=== PATIENT | male | born 1975 | race Caucasian/White ===

== ENCOUNTER 2018-08-22 18:16 | Emergency (ER) | payer OTHER ==
--- NOTE | 2018-08-22 18:47 | ED ---
General Adult HPI <Chace Rangel - Last Filed: 08/22/18 20:33> - General Source: patient, RN notes reviewed Mode of arrival: ambulatory Limitations: no limitations <Jaimee Nunez - Last Filed: 08/22/18 21:22> - General Chief complaint: Abdominal Pain Stated complaint: lt sided abd pain Time Seen by Provider: 08/22/18 18:31 - History of Present Illness Initial comments: Patient is a 43-year-old male with history of anal fissures who presents to the emergency department with complaints of left lower quadrant pain that radiates to his testicles that started today around 4:30 PM. He states he was drinking some apple juice and then the pain started. He also had nausea and vomiting ( nonbloody nonbilious). He reports having chills today and his thought he felt warm but did not take his temperature. He had this pain once earlier this week also. His father had colorectal cancer. Patient denies ever having a colonoscopy. Patient denies any medical conditions other than anal fissures, which he reports has caused him to have blood in his stool in the past. Patient denies any recent shortness of breath, chest pain, back pain, dizziness, numbness or tingling, dysuria or hematuria, constipation or diarrhea, black stools, headaches or visual changes, or any other complaints. (Jaimee Nunez) - Related Data Previous Rx's Medication Instructions Recorded Ketorolac [Toradol] 10 mg PO Q6HR PRN #12 tab 08/22/18 Tamsulosin [Flomax] 0.4 mg PO DAILY #10 cap 08/22/18 Allergies Allergy/AdvReac Type Severity Reaction Status Date / Time No Known Allergies Allergy Verified 08/22/18 19:05 Review of Systems ROS Other: All systems not noted in ROS Statement are negative. <Chace Rangel - Last Filed: 08/22/18 20:33> ROS Other: All systems not noted in ROS Statement are negative. <Jaimee Nunez - Last Filed: 08/22/18 21:22> ROS Statement: Those systems with pertinent positive or pertinent negative responses have been documented in the HPI. Past Medical History Past Medical History: No Reported History History of Any Multi-Drug Resistant Organisms: None Reported Past Surgical History: Orthopedic Surgery Additional Past Surgical History / Comment(s): R hand, cysts removed off of scalp Past Psychological History: No Psychological Hx Reported Smoking Status: Never smoker Past Alcohol Use History: None Reported Past Drug Use History: None Reported <Jaimee Nunez - Last Filed: 08/22/18 21:22> General Exam Limitations: no limitations General appearance: alert, in no apparent distress Head exam: Present: atraumatic, normocephalic Eye exam: Present: normal appearance Respiratory exam: Present: normal lung sounds bilaterally Cardiovascular Exam: Present: regular rate, normal rhythm GI/Abdominal exam: Present: soft, normal bowel sounds, other (Slight LLQ tenderness to palpation.) exam: Present: normal inspection ( exam done with Dr. Rangel.) Extremities exam: Present: normal inspection Neurological exam: Present: alert, oriented X3 Psychiatric exam: Present: normal affect, normal mood Skin exam: Present: warm, dry <Jaimee Nunez - Last Filed: 08/22/18 21:22> Vital Signs 08/22/18 08/22/18 18:26 20:12 Temperature 97.8 F Pulse Rate 71 72 Respiratory 18 16 Rate Blood Pressure 149/96 135/86 O2 Sat by Pulse 98 99 Oximetry Medical Decision Making - Lab Data Result diagrams: 08/22/18 19:50 08/22/18 19:50 <Chcae Rangel - Last Filed: 08/22/18 20:33> - Lab Data Result diagrams: 08/22/18 19:50 08/22/18 19:50 <Jaimee Nunez - Last Filed: 08/22/18 21:22> - Medical Decision Making I, Iraj Rangel, personally saw and examined the patient. I have reviewed and agree with the PA findings, including all diagnostic interpretations and treatment plans as written unless otherwise stated. I was present for the gómez portions of any procedures performed and the inclusive time noted for any critical care statement. (Chace Rangel) CT revealed a 5 mm calculus at the left ureteral pelvic junction. WBC 12.4. UA postive for blood. Will prescribe Flomax and Toradol. Patient does not want a opioid. Patient will be discharged with follow up to his PCP and urology. Case discussed in detail with attending physician Dr. Rangel. (Jaimee Nunez) - Lab Data Lab Results 08/22/18 08/22/18 08/22/18 Range/Units 19:50 19:50 19:57 WBC 12.4 H (3.8-10.6) k/uL RBC 5.27 (4.30-5.90) m/uL Hgb 15.1 (13.0-17.5) gm/dL Hct 46.1 (39.0-53.0) % MCV 87.5 (80.0-100.0) fL MCH 28.6 (25.0-35.0) pg MCHC 32.7 (31.0-37.0) g/dL RDW 13.1 (11.5-15.5) % Plt Count 267 (150-450) k/uL Neutrophils % 84 % Lymphocytes % 10 % Monocytes % 5 % Eosinophils % 1 % Basophils % 0 % Neutrophils # 10.4 H (1.3-7.7) k/uL Lymphocytes # 1.3 (1.0-4.8) k/uL Monocytes # 0.6 (0-1.0) k/uL Eosinophils # 0.1 (0-0.7) k/uL Basophils # 0.0 (0-0.2) k/uL Sodium 140 (137-145) mmol/L Potassium 4.3 (3.5-5.1) mmol/L Chloride 106 (98-107) mmol/L Carbon Dioxide 27 (22-30) mmol/L Anion Gap 7 mmol/L BUN 14 (9-20) mg/dL Creatinine 1.04 (0.66-1.25) mg/dL Est GFR (CKD-EPI)AfAm >90 (>60 ml/min/1.73 sqM) Est GFR (CKD-EPI)NonAf 88 (>60 ml/min/1.73 sqM) Glucose 97 (74-99) mg/dL Calcium 9.9 (8.4-10.2) mg/dL Total Bilirubin 1.9 H (0.2-1.3) mg/dL AST 34 (17-59) U/L ALT 45 (21-72) U/L Alkaline Phosphatase 66 (38-126) U/L Total Protein 7.8 (6.3-8.2) g/dL Albumin 4.2 (3.5-5.0) g/dL Amylase 68 (30-110) U/L Lipase 48 (23-300) U/L Urine Color Yellow Urine Appearance Clear (Clear) Urine pH 7.5 (5.0-8.0) Ur Specific [place] 1.015 (1.001-1.035) Urine Protein Trace H (Negative) Urine Glucose (UA) Negative (Negative) Urine Ketones Negative (Negative) Urine Blood Small H (Negative) Urine Nitrite Negative (Negative) Urine Bilirubin Negative (Negative) Urine Urobilinogen <2.0 (<2.0) mg/dL Ur Leukocyte Esterase Negative (Negative) Urine RBC 30 H (0-5) /hpf Urine WBC 2 (0-5) /hpf Urine Mucus Few H (None) /hpf Disposition <Chace Rangel - Last Filed: 08/22/18 20:33> Is patient prescribed a controlled substance at d/c from ED?: No Time of Disposition: 21:21 <Jaimee Nunez - Last Filed: 08/22/18 21:22> Clinical Impression: Calculus of kidney Disposition: HOME SELF-CARE Condition: Good Instructions: Kidney Stones (ED) Additional Instructions: Follow-up with PCP in 2-3 days. Follow up with urology in 2-3 days. Return to emergency department if symptoms worsen or any other concerns. Prescriptions: Ketorolac [Toradol] 10 mg PO Q6HR PRN #12 tab PRN Reason: Pain Tamsulosin [Flomax] 0.4 mg PO DAILY #10 cap Referrals: Flor Smith III, MD [Primary Care Provider] - 1-2 days Fredi Lundberg MD [STAFF PHYSICIAN] - 1-2 days
[2018-08-22] MEDS ORDERED: SODIUM CHLORIDE 0.9% 1,000 ML IV STA (19:01)
[2018-08-22] MEDS ORDERED: KETOROLAC 30 MG/ML 1 ML VIAL IVP STA (19:01)
--- NOTE | 2018-08-22 19:37 | CT ---
EXAMINATION TYPE: CT abdomen pelvis wo con DATE OF EXAM: 08/22/2018 COMPARISON: None HISTORY: Left side abdominal pain CT DLP: 572.7 mGycm Automated exposure control for dose reduction was used. TECHNIQUE: Helical acquisition of images was performed from the lung bases through the pelvis. FINDINGS: There is minimal subsegmental atelectasis at the lung bases. Heart size is normal. There is no pleura l effusion. There is no pericardial effusion. There are small hiatal hernia. The remainder of the sto mach is normal. Gallbladder appears normal. Liver shows no focal defect. Spleen appears normal. There is no pancreatic mass. There is no adrenal mass. The kidneys have normal size. There is mild left-sided hydronephrosis. Ther e is 5 mm calculus at the left ureteral pelvic junction. The right kidney has normal size and contour without evidence of hydronephrosis. Ureters are not dila eric. There is no retroperitoneal adenopathy. There is no mesenteric adenopathy or edema. Appendix hussain ears normal. Urinary bladder appears normal. There is prostatic calcification. There is no inguinal hernia. There is no free fluid in the pelvis. I see no intestinal wall thickening. There are no dilated loops. The lumbar spine is intact. The bony pelvis appears intact. IMPRESSION: THERE IS OBSTRUCTING CALCULUS AT THE LEFT URETEROPELVIC JUNCTION. MILD LEFT-SIDED HYDRONEPHROSIS.
[2018-08-22 20:13] VITALS: RESP 16
[2018-08-22 20:22] LABS: ALT 45 U/L (21-72); AST 34 U/L (17-59); Albumin 4.2 g/dL (3.5-5.0); Alkaline Phosphatase 66 U/L (38-126); Amylase 68 U/L (30-110); Anion Gap 7 mmol/L; Blood Urea Nitrogen 14 mg/dL (9-20); Calcium 9.9 mg/dL (8.4-10.2); Carbon Dioxide 27 mmol/L (22-30); Chloride 106 mmol/L (98-107); Glucose 97 mg/dL (74-99); Lipase 48 U/L (23-300); Potassium 4.3 mmol/L (3.5-5.1); Sodium 140 mmol/L (137-145); Total Bilirubin 1.9 mg/dL (0.2-1.3); Total Protein 7.8 g/dL (6.3-8.2)
[2018-08-22 20:28] LABS: Basophils % (A) 0 %; Eosinophils # (A) 0.1 k/uL (0-0.7); Eosinophils % (A) 1 %; HCT 46.1 % (39.0-53.0); HGB 15.1 gm/dL (13.0-17.5); Lymphocytes # (A) 1.3 k/uL (1.0-4.8); Lymphocytes % (A) 10 %; MCH 28.6 pg (25.0-35.0); MCHC 32.7 g/dL (31.0-37.0); MCV 87.5 fL (80.0-100.0); Mean Platelet Volume 6.8; Monocytes # (A) 0.6 k/uL (0-1.0); Monocytes % (A) 5 %; Neutrophils # (A) 10.4 k/uL (1.3-7.7); Neutrophils % (A) 84 %; Platelet Count 267 k/uL (150-450); RBC 5.27 m/uL (4.30-5.90); RDW 13.1 % (11.5-15.5); WBC 12.4 k/uL (3.8-10.6)
[2018-08-22 20:28] LABS: Appearance,Urine Clear (Clear); Bilirubin,Urine Negative (Negative); Blood,Urine Small (Negative); Color,Urine Yellow; Glucose,Urine (UA) Negative (Negative); Ketones,Urine Negative (Negative); Leukocyte Esterase,Urine Negative (Negative); Mucus,Urine Few /hpf; Nitrite,Urine Negative (Negative); PH, Urine 7.5 (5.0-8.0); Protein,Urine Trace (Negative); RBC,Urine 30 /hpf (0-5); Specific Gravity,Urine 1.015 (1.001-1.035); Urobilinogen,Urine <2.0 mg/dL (<2.0); WBC,Urine 2 /hpf (0-5)
[2018-08-22 21:44] VITALS: BP 116/66; PULSE 70; TEMP 97
== END 2018-08-22 21:51 | disposition home or self-care (01) ==
LOC: EC 18:16
DX: N13.2 Hydronephrosis with renal and ureteral calculous obstruction (principal)
CPT/HCPCS: 36415; 74176; 80053; 81001; 82150; 83690; 85025; 96360; 96361; 99284

== ENCOUNTER 2018-09-03 08:16 | Day surgery (SDC) | payer OTHER ==
[2018-08-30 09:24] VITALS: BMI 24.9
--- NOTE | 2018-09-03 08:12 | P.GSHP ---
History of Present Illness H&P Date: 09/03/18 Chief Complaint: Left-sided abdominal pain The patient is a 43-year-old male with no prior history of urolithiasis. He recently presented with left lower quadrant abdominal and flank pain, and a computed tomography scan showed a 5 mm left UPJ calculus causing mild left hydronephrosis. Alternative treatment options were reviewed with the patient in detail. These include observation with spontaneous passage, ureteroscopy with laser lithotripsy, and ESWL. He has elected to undergo the latter. - Constitutional Constitutional: Reports chills - Gastrointestinal Gastrointestinal: Reports nausea, Reports vomiting - Genitourinary (Male) Genitourinary: Denies hematuria Past Medical History Past Medical History: No Reported History Additional Past Medical History / Comment(s): Current kidney stone. History of Any Multi-Drug Resistant Organisms: None Reported Past Surgical History: Orthopedic Surgery Additional Past Surgical History / Comment(s): R hand surgery, cysts removed from scalp. Past Anesthesia/Blood Transfusion Reactions: No Reported Reaction Past Psychological History: No Psychological Hx Reported Smoking Status: Never smoker Past Alcohol Use History: None Reported Past Drug Use History: None Reported - Past Family History Father Family Medical History: Cancer Additional Family Medical History / Comment(s): Colorectal cancer Medications and Allergies Home Medications Medication Instructions Recorded Confirmed Type Tamsulosin [Flomax] 0.4 mg PO DAILY #10 cap 08/22/18 08/30/18 Rx Acetaminophen Tab [Tylenol Tab] 1,000 mg PO Q6HR PRN 08/30/18 08/30/18 History Allergies Allergy/AdvReac Type Severity Reaction Status Date / Time No Known Allergies Allergy Verified 08/22/18 19:05 Surgical - Exam - General well developed, well nourished, no distress - Neck no masses, trachea midline - Respiratory normal respiratory effort, clear to auscultation - Cardiovascular Rhythm: regular Abnormal Heart Sounds: no systolic murmur, no diastolic murmur, no rub, no S3 Gallop, no S4 Gallop, no click, no other - Abdomen Abdomen: soft, non tender, no guarding, no rigid, no rebound - Genitourinary normal penis with no external lesions, testicles non-tender - Psychiatric oriented to time, oriented to person, oriented to place, speech is normal, memory intact Results - Imaging Abdominal x-ray: report reviewed, image reviewed CT scan - abdomen: report reviewed, image reviewed Assessment and Plan (1) Calculus of kidney Status: Acute Code(s): N20.0 - CALCULUS OF KIDNEY SNOMED Code(s): 28449604 Plan: Alternative treatment options for a ureteral calculus include observation with spontaneous passage and ureteroscopy with stone manipulation. The pros, cons, and risks of each approach have been reviewed. Following a lengthy discussion, as a result of shared decision making, the patient has elected to proceed with ESWL. He understands that the procedure will be performed by Dr. Wilburn. I discussed with the patient the treatment of the calculus with ESWL. I explained the possible need for repeat ESWL or alternative treatment in the event of treatment failure or incomplete fragmentation. I discussed the risks of ESWL, including anesthesia, collateral damage to other organs, and [place]. The possible need for a secondary intervention such as a stent or ureteroscopy was discussed. The patient expressed an understanding of the procedure and risks including but not limited to bleeding, infection, obstruction, and rarely injury to other organs such as the liver or spleen. He was advised that renal contusions are common, resulting in hematuria. The possibility of a perinephric hematoma was also discussed.
[~2018-09-03 08:16] MED LIST: LACTATED RINGERS 1,000 ML IV SCH
[2018-09-03 08:50] VITALS: RESP 16; TEMP 97.8
[2018-09-03] MEDS ORDERED: LIDOCAINE 1% 20 ML VIAL (10MG/ML) FOR IV START INTRADERMA ONE (08:57)
--- NOTE | 2018-09-03 09:25 | XR ---
Abdomen HISTORY: Left-sided lithotripsy, left-sided kidney stone Frontal view of the abdomen on 2 images Correlation to prior abdomen 08/29/2018, CT abdomen pelvis 08/22/2018 There is an oval calcification superimposed over the left paraspinal location at the L2 transverse pr ocess level measuring approximately 6 mm compatible with proximal left ureteral calcification. No pne umoperitoneum or bowel obstruction. IMPRESSION: Proximal left ureteral calculus.
[2018-09-03] MEDS ORDERED: KETAMINE 10 MG/ML 20 ML VIAL ONE (09:56)
[2018-09-03] MEDS ORDERED: MIDAZOLAM 2 MG/2 ML VIAL ONE (09:56)
[2018-09-03] MEDS ORDERED: PROPOFOL 10 MG/ML 20 ML VIAL IV ONE (09:56)
[2018-09-03] MEDS ORDERED: fentaNYL (PF) 50 MCG/ML 2 ML AMP ONE (09:56)
--- NOTE | 2018-09-03 10:30 | P.OP ---
Date of Procedure: 09/03/18 Preoperative Diagnosis: Left ureteral stone Postoperative Diagnosis: Same Procedure(s) Performed: ESWL 2500 shocks at energy level IV Anesthesia: MAC Surgeon: Dmitry Wilburn Pathology: none sent Condition: stable Disposition: PACU Indications for Procedure: The patient is 43 with a painful 6 mm proximal left ureteral stone who comes for shockwave lithotripsy Description of Procedure: The patient was brought to the operating suite and placed on the lithotripsy table in a supine position. The 6 mm left proximal ureteral stone was identified under fluoroscopy. 2500 shocks of energy for level are administered. Stone appears to fracture. Then the procedure the patient awake and returned recovery in good condition. Tell procedure well be discharged home upon recovery.
[2018-09-03 10:56] VITALS: BP 130/79; PULSE 66
== END 2018-09-03 11:20 | disposition home or self-care (01) ==
LOC: ORWHC2ENDO 08:16
PROVIDERS: ATTEND Urology
DX: N20.1 Calculus of ureter (principal); Z87.442 Personal history of urinary calculi; Z79.899 Other long term (current) drug therapy
CPT/HCPCS: 74018; 50590; J2250; J3010; J2704

== ENCOUNTER → 2018-09-10 | Outpatient (CLI) | payer OTHER ==
--- NOTE | 2018-09-10 08:51 | XR ---
EXAMINATION TYPE: XR abdomen 1V DATE OF EXAM: 09/10/2018 COMPARISON: 09/03/2018 HISTORY: Left-sided lithotripsy TECHNIQUE: One view abdominal series FINDINGS: The osseous structures are intact. The bowel gas pattern is nonspecific. There is a vague calcification adjacent to the L2 left transverse process measuring 5 mm. Calcificati ons pelvis are stable may be related to prostate gland. IMPRESSION: 1. 5 mm calcification left upper quadrant adjacent to the transverse process of L2.
== END ==
LOC: RADXRMAIN 08:13
PROVIDERS: ATTEND Urology
DX: K92.89 Other specified diseases of the digestive system (principal)
CPT/HCPCS: 74018

== ENCOUNTER → 2018-09-25 | Outpatient (CLI) | payer OTHER ==
--- NOTE | 2018-09-25 09:05 | XR ---
Abdomen HISTORY: Left-sided calculus of ureter, post lithotripsy Single frontal view the abdomen correlated to prior abdomen 09/10/[address] August 2018 Prostate calcifications are present. Lung bases are clear. Paraspinal location on the left shows susp ect calcification measuring 3 to 4 mm at the level of L2 transverse process. No evident pneumoperiton eum or bowel obstruction. Retained fecal debris noted in the colon. IMPRESSION: Persistent proximal left ureteral calculus is suspected.
== END | disposition home or self-care (01) ==
LOC: RADXRMAIN 07:39
PROVIDERS: ATTEND Urology
DX: N20.1 Calculus of ureter (principal)
CPT/HCPCS: 74018

== ENCOUNTER → 2020-06-25 | Outpatient (CLI) | payer OTHER ==
--- NOTE | 2020-06-25 13:06 | US ---
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 EXAM MEASUREMENTS: Liver Length: 14.5 cm Gallbladder Wall: 0.2 cm CBD: 0.4 cm Right Kidney: 11.6 x 6.2 x x 4.9 cm Pancreas: Obscured by bowel gas Liver: wnl Gallbladder: wnl Evidence for sonographic Nagel's sign:no CBD: wnl Right Kidney: wnl IMPRESSION: No distinct abnormality is appreciated.
== END | disposition home or self-care (01) ==
LOC: RADUSWWP 06:54
PROVIDERS: ATTEND Family Medicine
DX: E80.7 Disorder of bilirubin metabolism, unspecified (principal)
CPT/HCPCS: 76705

== ENCOUNTER 2020-12-02 09:50 | Day surgery (SDC) | payer OTHER ==
--- NOTE | 2020-12-02 08:35 | P.GSHP ---
History of Present Illness H&P Date: 12/02/20 CHIEF COMPLAINT: Colon screen HISTORY OF PRESENT ILLNESS: The patient is a 45-year-old male who presents for colon screen. Lower endoscopy was offered for further evaluation and management. PAST MEDICAL HISTORY: Please see list. PAST SURGICAL HISTORY: Please see list. MEDICATIONS: Please see list. ALLERGIES: Please see list. SOCIAL HISTORY: No illicit drug use FAMILY HISTORY: No reports of Crohn disease or ulcerative colitis. REVIEW OF ORGAN SYSTEMS: CONSTITUTIONAL: No reports of fevers or chills. PHYSICAL EXAM: VITAL SIGNS: Stable GENERAL: Well-developed pleasant in no acute distress. HEENT: No scleral icterus. Extraocular movements grossly intact. Moist buccal mucosa. NECK: Supple without lymphadenopathy. CHEST: Unlabored respirations. Equal bilateral excursions. CARDIOVASCULAR: Regular rate and rhythm. Distal 2+ pulses. ABDOMEN: Soft, nontender, nondistended. MUSCULOSKELETAL: No clubbing, cyanosis, or edema. ASSESSMENT: 1. Colon screen. PLAN: 1. Recommend proceeding with a lower endoscopy Past Medical History Past Medical History: No Reported History Additional Past Medical History / Comment(s): Kidney stone. History of Any Multi-Drug Resistant Organisms: None Reported Past Surgical History: Orthopedic Surgery Additional Past Surgical History / Comment(s): R hand surgery, cysts removed from scalp. Past Anesthesia/Blood Transfusion Reactions: No Reported Reaction Past Psychological History: No Psychological Hx Reported Smoking Status: Never smoker Past Alcohol Use History: None Reported Past Drug Use History: None Reported - Past Family History Father Family Medical History: Cancer Additional Family Medical History / Comment(s): Colorectal cancer Medications and Allergies Home Medications Medication Instructions Recorded Confirmed Type No Known Home Medications 11/30/20 11/30/20 History Allergies Allergy/AdvReac Type Severity Reaction Status Date / Time No Known Allergies Allergy Verified 11/30/20 10:08
[~2020-12-02 09:50] MED LIST changes: +LIDOCAINE 1% (10MG/ML) FOR IV START INTRADERMA PRN
[2020-12-02 10:30] VITALS: TEMP 97
[2020-12-02] MEDS ORDERED: PROPOFOL 10 MG/ML 20 ML VIAL IV ONE (10:55)
[2020-12-02 11:59] VITALS: BP 133/79; PULSE 71; RESP 18
--- NOTE | 2020-12-02 18:16 | P.PCN ---
Date of Procedure: 12/02/20 Description of Procedure: PREOPERATIVE DIAGNOSIS: Family history colon cancer, father at young age Colonoscopy screening, high risk POSTOPERATIVE DIAGNOSIS: Family history colon cancer, father at young age Colonoscopy screening, high risk OPERATION: Colonoscopy to the cecum, ileocecal valve and appendiceal orifice. SURGEON: Abbie Magana MD. ANESTHESIA: MAC. INDICATIONS: The patient is a 45-year-old male who presents for his first colonoscopy screening. Benefits and risks were described and informed consent was obtained. DESCRIPTION OF PROCEDURE: The patient had undergone Suprep pills. The patient had been brought into the operating room and laid in the left lateral decubitus position. After adequate intravenous sedation, the rectum was examined with 2% lidocaine jelly. The prostate was unremarkable. No external hemorrhoids were encountered. The rectal tone was within normal limits. No lesions were palpated in the rectal vault. An Olympus colonoscope was advanced until the cecum, ileocecal valve and appendiceal orifice were clearly viewed. The prep was excellent. No scattered diverticulosis was encountered. No colonic polyps were found. No evidence of focal colitis was found. Retroflexion of the scope demonstrated grade 1 internal hemorrhoids without active bleeding or inflammation. The colon was desufflated. The patient had tolerated the procedure well. Withdrawal time was over 6 minutes. FINDINGS: Aronchick preparation quality scale 1 (1-5) Internal hemorrhoids, grade 1 No external prolapsed hemorrhoids. No arteriovenous malformations. No adenomatous polyps. No scattered diverticulosis No focal colitis. RECOMMENDATIONS: Lower endoscopy in 2025 due to high risk Plan - Discharge Summary Discharge Rx Participant: No New Discharge Prescriptions: Continue No Known Home Medications Discharge Medication List No Known Home Medications 11/30/20 [History] Follow up Appointment(s)/Referral(s): Abbie Magana MD [STAFF PHYSICIAN] - As Needed Patient Instructions/Handouts: *Surgery [facility] - (Anesthesia) Endoscopy Discharge Instructions, Colonoscopy (DC) Activity/Diet/Wound Care/Special Instructions: Repeat colonoscopy in 5 years2025 Discharge Disposition: HOME SELF-CARE
== END 2020-12-02 12:38 | disposition home or self-care (01) ==
LOC: ORWHC2ENDO 09:50
PROVIDERS: ATTEND Surgery Plastic and Reconstructive Surgery
DX: Z12.11 Encounter for screening for malignant neoplasm of colon (principal); K64.0 First degree hemorrhoids; Z80.0 Family history of malignant neoplasm of digestive organs; Z87.442 Personal history of urinary calculi; Z98.890 Other specified postprocedural states
CPT/HCPCS: J2704; G0105; 45378

== ENCOUNTER → 2023-12-26 | Outpatient (CLI) | payer OTHER ==
[2023-12-26 14:09] VITALS: BP 128/81; PULSE 73; RESP 12; TEMP 97.8
--- NOTE | 2023-12-26 14:34 | P.SLEEP ---
History of Present Illness H&P Date: 12/26/23 28-year-old male patient presenting with symptoms of chronic hypersomnia /sleepiness. This is an ongoing problem the patient has had this syndrome for years. No significant medical problems or comorbidities. The patient has no recent weight gain. He had loud snoring and the reports apneas occurring throughout the night on multiple occasions. He goes to bed around 11 PM, wakes up 6:40 AM in the morning. He feels tired and fatigued and not depressed. He can easily fall asleep. No history of any motor vehicle accident because of kidney stones or bleeding. No issues with insomnia. No nocturia. No grinding of the teeth. No sleepwalking or sleep talking. No anxiety or panic attacks. No palpitations. No heartburn. No nighttime shortness of breath. No restlessness in lower extremities. The patient does not take any naps during the day although he can easily take a nap he was given the opportunity to do so. His current Whittier score is at 12. No history of head trauma. No history of substance abuse. No excessive utilization of alcoholic beverages. No camping or intake. His father has obstructive sleep apnea and he has been treated with CPAP therapy. Review of Systems Constitutional: Reports daytime sleepiness, Reports fatigue Eyes: denies as per HPI, denies blurred vision, denies bulging eye, denies decreased vision, denies diplopia, denies discharge, denies dry eye, denies irritation, denies itching, denies pain, denies photophobia, denies loss of peripheral vision, denies loss of vision, denies tunnel vision/blind spots Ears: deny: decreased hearing, ear discharge, earache, tinnitus Ears, nose, mouth and throat: Reports as per HPI Breasts: absent: as per HPI, gynecomastia Cardiovascular: Reports as per HPI Respiratory: Reports snoring Gastrointestinal: Reports as per HPI Genitourinary: Reports as per HPI Musculoskeletal: Reports as per HPI Musculoskeletal: absent: ankle pain, ankle stiffness, ankle swelling Integumentary: Reports as per HPI Neurological: Reports as per HPI Psychiatric: Reports as per HPI Endocrine: Reports as per HPI, Reports fatigue Hematologic/Lymphatic: Reports as per HPI Allergic/Immunologic: Reports as per HPI Past Medical History Past Medical History: No Reported History Additional Past Medical History / Comment(s): Kidney stone. History of Any Multi-Drug Resistant Organisms: None Reported Past Surgical History: Orthopedic Surgery Additional Past Surgical History / Comment(s): R hand surgery, cysts removed from scalp. Kidney Stone Past Anesthesia/Blood Transfusion Reactions: No Reported Reaction Past Psychological History: No Psychological Hx Reported Smoking Status: Never smoker Past Alcohol Use History: None Reported Past Drug Use History: None Reported - Past Family History Father Family Medical History: Cancer Additional Family Medical History / Comment(s): Colorectal cancer Medications and Allergies Home Medications Medication Instructions Recorded Confirmed Type No Known Home Medications 11/30/20 11/30/20 History Allergies Allergy/AdvReac Type Severity Reaction Status Date / Time No Known Allergies Allergy Verified 11/30/20 10:08 Physical Exam Vitals: Vital Signs Temp Pulse Resp BP Pulse Ox 12/26/23 13:49 97.8 F 73 12 128/81 97 Intake and Output 12/25/23 12/26/23 12/26/23 22:59 06:59 14:59 Other: Weight 100.244 kg The patient appeared well nourished and normally developed. Vital signs as documented. Head exam is unremarkable. No scleral icterus or corneal arcus noted. Neck is without jugular venous distension, thyromegaly, or carotid bruits. The patient is a Mallampati class I without any significant crowding of the posterior pharynx carotid upstrokes are brisk bilaterally. Lungs are clear to auscultation and percussion. Cardiac exam reveals the PMI to be normally sized and situated. Rhythm is regular. First and second heart sounds normal. No murmurs, rubs or gallops. Abdominal exam reveals normal bowel sounds, no masses, no organomegaly and no aortic enlargement. Extremities are nonedematous and both femoral and pedal pulses are normal. Examination of the skin revealed no evidence of significant rashes, suspicious appearing nevi or other concerning lesions. Neurologically, the patient is awake and alert and the patient does not have any focal neurological deficit. Cranial nerves are essentially intact. Assessment and Plan Plan: Hypersomnia, chronic, with an Whittier score of 12, with symptoms suggestive of obstructive sleep apnea and the patient will need further investigation. Snoring and witnessed apneas Mallampati class I Chronic fatigue BMI of 26.9. Plan There is an adequate suspicion for obstructive sleep apnea in this patient based on the reported symptoms. The patient is going to undergo a home sleep study to evaluate the presence and severity of sleep apnea and we will make further recommendation of treatment options accordingly. Sleep Note - Sleep Data ESS Total: 12 - Sleep Note Sleep Note: Temperature: 97.8 F Pulse Rate: 73 Respiratory Rate: 12 Blood Pressure: 128/81 SpO2: 97 Height: 6 ft 4 in Weight: 100.244 kg BMI: Neck Circumference: 16.5
== END | disposition home or self-care (01) ==
LOC: 3 N SLEEP 13:21
PROVIDERS: ATTEND Internal Medicine Critical Care Medicine
DX: G47.10 Hypersomnia, unspecified (principal); R06.83 Snoring; R53.83 Other fatigue; Z68.26 Body mass index [BMI] 26.0-26.9, adult; Z98.890 Other specified postprocedural states
CPT/HCPCS: 99211

== ENCOUNTER → 2024-02-06 | Outpatient (CLI) | payer OTHER ==
--- NOTE | 2024-02-08 16:36 | P.PCN ---
Date of Procedure: 02/06/24 Operative Findings: Home sleep study testing Date of service is 02/06/2024 History This is a 48-year-old male patient suspected of obstructive sleep apnea. The patient has chronic hypersomnia with an Raymond score of 12. He has loud snoring and witnessed apneas. He has chronic fatigue. Physical findings Body mass index is 26 with a height of 6 feet and 4 inches weight of 100 kg Technical description The [employer] system was used to complete this home sleep study. This is a type III home sleep study evaluation. Total recording duration was 7 hours and 34 minutes. The study started at 11:07 PM ended at 6:42 AM. There was more than 7 hours of flow and oxygen saturation evaluation during the study Results Respiratory analysis showed a total of 70 obstructive apneas and 193 obstructive hypopneas. The resulting AHI was 49 consistent with severe obstructive sleep apnea, slightly worsened in supine body position Oxygenation analysis Despite the severity of obstructive sleep apnea, the patient encountered minimal oxygen saturation. Patient spent only 1 minute of the sleep time below pulse ox of 89% and the minimum pulse ox was recorded to be at 87%. Cardiac summary Average heart rate was 65 with a minimum heart rate of 54 and a maximum heart rate of 104 Assessment Severe obstructive sleep apnea symptomatic with an AHI of 49 Chronic hypersomnia Chronic fatigue Plan Proceed with in lab CPAP titration in preparation for CPAP therapy.
== END ==
LOC: 3 N SLEEP 16:39
PROVIDERS: ATTEND Internal Medicine Critical Care Medicine
DX: G47.33 Obstructive sleep apnea (adult) (pediatric) (principal); G47.10 Hypersomnia, unspecified; R53.82 Chronic fatigue, unspecified

== ENCOUNTER 2024-04-07 19:48 | Outpatient (CLI) | payer OTHER ==
--- NOTE | 2024-04-19 23:20 | P.PCN ---
Date of Procedure: 04/07/24 Operative Findings: CPAP titration study Date of service is 04/06/2024 Present history patient was diagnosed having severe obstructive sleep apnea with an AHI of 49 and the patient is coming in for CPAP titration study Pertinent physical findings Body mass index is 26 Technical description The patient was studied using a standard complex polysomnography protocol that included recording of the 2 EKG, Central, occipital and frontal EEG, right and left outer canthus EOG, submental EMG, right and left anterior tibialis EMG, respiratory airflow by thermocouple and or pressure/flow transducer, respiratory efforts by abdominal and thoracic PVDF belts, oxygen saturation by cable oximetry. Position by observation synchronized the PSG. Stepwise CPAP titration was done to eliminate obstructive respiratory events equipment used: [employer]. Sleep architecture The total recording duration was 418.0 minutes. The total sleep time was 388.0 minutes. The wake after sleep onset time was 21.5 minutes. The overall sleep efficiency was 92.8%. The latency to sleep onset was 8 minutes. The sleep architecture was catheterized by 4.6% stage I, 52.8% stage II, 12.4% stage III, 30.2% REM sleep. The total arousal index was 8.5 Respiratory summary The patient was started on CPAP therapy initially at a pressure of 5 cm of water and pressure was gradually increased by comments of 1 cm to reach a maximum pressure of 12 cm of water. I carefully reviewed the CPAP titration taken, the patient sleep stage and body position. There was obvious improvement in the patient's obstructive respiratory events with a pressure of 10 cm of water. This will be used as a target pressure for treating this patient obstructive sleep apnea. No significant desaturations noted at that level of pressure. Sleep continuity summary The patient had a total of 55 arousals with an index of 8.5. Respiratory arou rosalie index was 2.5 periodic limb movement summary There was a total of 25 periodic limb movement activity with an index of 3.9. Cardiac summary Average heart rate was 63, rhythm was sinus Plan Severe KALI with an AHI of 49. Successful CPAP titration. Plan Initiate CPAP therapy pressure of 10 cm of water with C-Flex of 3. The patient will be provided AirFit F20 fullface mask large size. Encourage weight loss. Maintain good sleep hygiene measures. See him back in office in 30 to 90 days to assess clinical response and compliancy.
== END 2024-04-08 05:50 | disposition home or self-care (01) ==
LOC: 3 N SLEEP 19:48
PROVIDERS: ATTEND Internal Medicine Critical Care Medicine
DX: G47.33 Obstructive sleep apnea (adult) (pediatric) (principal)
CPT/HCPCS: 95811